=== PATIENT | female | born 1950 | race Caucasian/White ===

== ENCOUNTER 2019-04-11 15:49 | Emergency (ER) | payer MEDICARE, OTHER ==
[~2019-04-11 15:49] MED LIST: Iopamidol 370 76% 100 ML VIAL ONE
[2019-04-11 16:33] LABS: #Basophils 0.1 thou/uL (0.0-0.2); #Eosinphils 0.1 thou/uL (0.0-0.7); #Lymphocytes 1.9 thou/uL (1.20-3.40); #Monocytes 0.4 thou/uL (0.11-0.59); #Neutrophils 3.1 thou/uL (1.40-6.50); %Basophils 1.2 % (0.0-1.0); %Monocytes 6.3 % (0.0-10.0); %Neutrophils 56.5 % (42.0-75.0); Anisocytosis MARKED = >30 cells (100X) (0-5/hpf); Differential Comment SCANNED; Hemoglobin 5.2 g/dL (12.0-16.0); Hypochromia MODERATE=16-30 cells (100X) (0-5/hpf); MDiff Complete? YES; Mean Corpuscular HGB CONC 27.5 g/dL (32.0-36.0); Mean Corpuscular Hemoglobin 16.5 pg (27.0-31.0); Mean Corpuscular Volume 60.1 fL (78.0-98.0); Mean Platelet Volume 7.5 fL (7.4-10.4); Microcytosis MODERATE=15-30 cells (100X) (0-5/hpf); Platelet Count 425 thou/uL (130-400); RBC Distribution Width 20.3 % (11.5-14.5); Red Blood Cell (RBC) Count 3.13 mill/uL (4.20-5.40); White Blood Cell (WBC) Count 5.5 thou/uL (4.8-10.8)
[2019-04-11 16:38] LABS: ALT (SGPT) 10 U/L (8-55); AST (SGOT) 12 U/L (5-34); Albumin 4.3 g/dL (3.4-4.8); Alkaline Phosphatase 82 U/L (40-110); Anion Gap 15 mmol/L (10-20); BUN (Urea Nitrogen) 9 mg/dL (9.8-20.1); Bilirubin, Total 0.9 mg/dL (0.2-1.2); Calc. Creatinine Clearance 0 mL/min (70-130); Carbon Dioxide 21 mmol/L (23-31); Chloride 111 mmol/L (98-107); Estimated GFR-MDRD 84; Globulin 2.3 g/dL (2.4-3.5); Glucose 99 mg/dL (80-115); Potassium 3.7 mmol/L (3.5-5.1); Protein, Total 6.6 g/dL (6.0-8.3); Sodium 143 mmol/L (136-145)
--- NOTE | 2019-04-11 17:00 | RAD ---
EXAM: CHEST ONE VIEW HISTORY: Shortness of breath, dyspnea. Bilateral lower extremity swelling. COMPARISON: None FINDINGS: Cardiac silhouette is enlarged. Pulmonary vasculature is increased. There is suboptimal evaluation le ft lung base. The osseous structures are intact. IMPRESSION: Evidence of CHF.
[2019-04-11 17:24] LABS: INR-International Normal Ratio 1.4; Prothrombin Time 17.5 SEC (12.0-14.7)
[2019-04-11 17:25] LABS: PTT 31.6 SEC (22.9-36.1)
[2019-04-11] MEDS ORDERED: Sodium Chloride 0.9% 500 ML ONE (17:26)
--- NOTE | 2019-04-11 18:55 | CT ---
CT ABDOMEN AND PELVIS WITH IV CONTRAST: 04/11/19 INDICATION: Shortness of breath. Abdominal pain. FINDINGS: Images through the lung bases show small bilateral effusions. There is a moderate sized pericardial e ffusion. The liver is unremarkable. The spleen is mildly prominent measuring approximately 14 cm. The pancreas is unremarkable. There is evidence of a gallstone in the gallbladder fundus. No biliary duct dilatation. A low density focus in the left lobe of the liver suggests a small hepatic cyst. Adrenal glands evangelista l. Nonobstructing calculi in the upper collecting structures of both kidneys. Mildly prominent left dmitri l pelvis. There is also a small left renal cortical cyst measuring approximately 1 cm. There are othe r tiny low density foci seen in both kidneys which are too small to adequately characterize. The uret ers are normal caliber. There is no evidence of ureteral calculus or obstruction. Urinary bladder is mildly distended and unremarkable. Small bowel loops appear normal caliber. Colon unremarkable. Aorta normal caliber. There is an anterior abdominal wall hernia at the level of the umbilicus. Mesenteric fat herniates th rough this defect and there is a hernia sac within the subcutaneous tissues filled with mesenteric fa t measuring 4.5 cm width. Subcutaneous adipose haziness may represent edema or anasarca. IMPRESSION: 1. Tiny bilateral pleural effusions. Moderate pericardial effusion. 2. Borderline splenomegaly. 3. Cholelithiasis. There may be mild pericholecystic edema. Correlate with gallbladder ultrasoun d. 4. Mildly prominent left renal pelvis of undetermined etiology. 5. Tiny nonobstructing calculi in the upper collecting structures of both kidneys. 6. Anterior abdominal wall hernia at the umbilicus with mesenteric fat herniated in through a he rnia sac in the subcutaneous tissues. POS: [facility]
== END 2019-04-11 17:59 | disposition short-term general hospital (02) ==
LOC: NAV ERS 15:49
DX: I48.91 Unspecified atrial fibrillation (principal); D64.9 Anemia, unspecified; I31.3 Pericardial effusion (noninflammatory); J90 Pleural effusion, not elsewhere classified; K42.9 Umbilical hernia without obstruction or gangrene; Z71.6 Tobacco abuse counseling; F41.0 Panic disorder [episodic paroxysmal anxiety]; F17.210 Nicotine dependence, cigarettes, uncomplicated
CPT/HCPCS: 36430; 71045; 74177; 80053; 83605; 83880; 84484; 85025; 85610; 85730; 86850; 86900; 86901; 93005; 96374; 96376; 99406; J7050; P9016; Q9967

== ENCOUNTER 2020-11-20 11:45 | Outpatient (CLI) | payer MEDICARE, OTHER ==
[2020-11-20 12:37] LABS: ALT (SGPT) 22 U/L (8-55); AST (SGOT) 17 U/L (5-34); Albumin 4.3 g/dL (3.4-4.8); Alkaline Phosphatase 65 U/L (40-110); Anion Gap 14 mmol/L (10-20); BUN (Urea Nitrogen) 13 mg/dL (9.8-20.1); Bilirubin, Total 0.9 mg/dL (0.2-1.2); Calc. Creatinine Clearance 0 mL/min (70-130); Calcium 9.9 mg/dL (7.8-10.44); Carbon Dioxide 25 mmol/L (23-31); Chloride 104 mmol/L (98-107); Glucose 94 mg/dL (80-115); Potassium 3.6 mmol/L (3.5-5.1); Protein, Total 7.3 g/dL (5.8-8.1); Sodium 139 mmol/L (136-145)
== END 2020-11-20 11:46 | disposition home or self-care (01) ==
LOC: NAV CT 11:45
PROVIDERS: ATTEND Internal Medicine
DX: N02.9 Recurrent and persistent hematuria with unspecified morphologic changes (principal); E11.9 Type 2 diabetes mellitus without complications; D50.0 Iron deficiency anemia secondary to blood loss (chronic); I48.91 Unspecified atrial fibrillation; E78.5 Hyperlipidemia, unspecified; I31.3 Pericardial effusion (noninflammatory); R16.1 Splenomegaly, not elsewhere classified; K80.20 Calculus of gallbladder without cholecystitis without obstruction; N20.0 Calculus of kidney; N28.1 Cyst of kidney, acquired; K42.9 Umbilical hernia without obstruction or gangrene
CPT/HCPCS: 74178; 80053; Q9967

== ENCOUNTER 2022-01-17 13:32 | Outpatient (CLI) | payer MEDICARE, OTHER ==
[2022-01-17 14:22] LABS: #Basophils 0.1 thou/uL (0.0-0.2); #Eosinphils 0.1 thou/uL (0.0-0.7); #Lymphocytes 2.7 thou/uL (1.20-3.40); #Monocytes 0.7 thou/uL (0.11-0.59); #Neutrophils 6.3 thou/uL (1.40-6.50); %Basophils 1.2 % (0.0-1.0); %Eosinophils 1.3 % (0.0-10.0); %Monocytes 7.5 % (0.0-10.0); Hemoglobin 14.9 g/dL (12.0-16.0); Mean Corpuscular HGB CONC 30.1 g/dL (32.0-36.0); Mean Corpuscular Hemoglobin 24.5 pg (27.0-31.0); Mean Corpuscular Volume 81.3 fl (78.0-98.0); Mean Platelet Volume 7.3 fL (7.4-10.4); Platelet Count 345 thou/uL (130-400); RBC Distribution Width 14.6 % (11.5-14.5); Red Blood Cell (RBC) Count 6.08 mill/uL (4.20-5.40)
[2022-01-17 14:40] LABS: ALT (SGPT) 26 U/L (8-55); AST (SGOT) 20 U/L (5-34); Albumin 4.3 g/dL (3.4-4.8); Alkaline Phosphatase 68 U/L (40-110); Anion Gap 15 mmol/L (10-20); BUN (Urea Nitrogen) 11 mg/dL (9.8-20.1); Bilirubin, Total 0.5 mg/dL (0.2-1.2); Calc. Creatinine Clearance 0 mL/min (70-130); Calcium 9.9 mg/dL (7.8-10.44); Carbon Dioxide 25 mmol/L (23-31); Chloride 106 mmol/L (98-107); Estimated GFR 97; Globulin 2.9 g/dL (2.4-3.5); Glucose 75 mg/dL (80-115); Potassium 4.1 mmol/L (3.5-5.1); Protein, Total 7.2 g/dL (5.8-8.1); Sodium 142 mmol/L (136-145)
== END 2022-01-17 13:33 | disposition home or self-care (01) ==
LOC: NAV EKG 13:32
PROVIDERS: ATTEND Nurse Practitioner Family
DX: Z01.812 Encounter for preprocedural laboratory examination (principal); K42.9 Umbilical hernia without obstruction or gangrene; R22.2 Localized swelling, mass and lump, trunk
CPT/HCPCS: 36415; 80053; 85025

== ENCOUNTER 2022-09-13 13:06 | Emergency (ER) | payer MEDICARE, OTHER | END 2022-09-13 14:02 | disposition home or self-care (01) | LOC: NAV ERS 13:06 | DX: M25.512 Pain in left shoulder (principal); Z87.891 Personal history of nicotine dependence ==